=== PATIENT | male | born 1965 | race Caucasian/White ===

== ENCOUNTER 2017-01-06 16:26 | Emergency (ER) | payer BC ==
[2017-01-06 16:32] VITALS: RESP 16
[2017-01-06] MEDS ORDERED: ONDANSETRON DISINTEGRATING 4 MG TAB PO ONE (16:38)
[2017-01-06] MEDS ORDERED: ONDANSETRON DISINTEGRATING 4 MG TAB ONE (16:39)
--- NOTE | 2017-01-06 16:50 | EDPHY ---
HPI/HX/ROS/PE/MDM Narrative: CHIEF COMPLAINT: Vomiting HPI: This patient is a 51-year-old male who presents to the Emergency Department complaining of acute onset vomiting beginning last night at 2130, shortly after taking his first dose of amoxicillin to treat a wound infection to his right ear as prescribed by his primary care provider. At approximately 2200 last night, he felt acutely anxious followed by 3-4 hours of acute emesis last night. Today, he was able to eat breakfast and lunch without issue. He took another dose of amoxicillin at 1400; by 1500, he began to experience a similar episode of emesis and anxiety. At time of arrival, he complains of persistent nausea. He denies fever, chills, or any additional complaints. His primary care provider recommended that he stop taking amoxicillin and use topical drops to treat instead. His PCP also recommended Zofran; the patient has no attempted to use an antiemetic prior to arrival. No pertinent medical history. REVIEW OF SYSTEMS: Aside from elements discussed in the HPI, a comprehensive 10-point review of systems was reviewed and is negative. 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 ENT:Eyes are normal to inspection. Abrasion with scabbing present at 12 o'clock position of the external auditory canal; no swelling or discharge. TMs are clear bilaterally. Neck: Normal inspection. Full range of motion. Respiratory:No respiratory distress. Breath sounds normal bilaterally. Cardiovascular: Regular rate and rhythm. Strong peripheral pulses. Normal cap refill. Abdomen:The abdomen is nontender to palpation. There are no peritoneal signs. There are normal bowel sounds. Back: Normal to inspection. No tenderness to palpation. Skin: Normal color. No rash. Warm and dry. Extremities: Normal appearance. Full range of motion. Neuro: Oriented x3. Normal motor function. Normal sensory function. ED Course: Normally healthy 51-year-old male presents following two episodes of acute emesis, each preceded by taking a dose of amoxicillin prescribed by his PCP to treat an infected wound in his right ear canal. He has no additional complaints. He is afebrile and appropriate at time of exam. He appears to have an adverse reaction to amoxicillin. 4mg PO Zofran administered. 1802: On reevaluation the patient continues to complain of nausea. IV established. 4mg IV Zofran and 1L IV NS administered. Awaiting lab results. Labs obtained and are unremarkable. Troponin is negative. 2001: At time of reevaluation, the patient reports significant improvement to his nausea following administration of Zofran. He will be discharged home in good condition with customary return precautions. He is given a Zofran pre-pack to use PRN for nausea. MDM: This patient presents with what sounds like an adverse reaction to amoxicillin, no evidence of true anaphylaxis. Patient's symptoms of nausea appear to coincide well with timing of his amoxicillin dosing. His ear appears to be healing well and I do not think oral antibiotics are indicated, so I think he can discontinue this medication. His labs are unremarkable and there is no evidence of a cardiac etiology. He reports resolution of his symptoms prior to discharge. We discussed strict return precautions. - Data Points Laboratory Results: Laboratory Results 01/06/17 17:40 01/06/17 17:40 01/06/17 01/06/17 17:40 17:40 WBC 7.71 10^3/uL 10^3/uL (3.80-9.50) RBC 5.58 10^6/uL 10^6/uL (4.40-6.38) Hgb 18.1 g/dL H g/dL (13.7-17.5) Hct 52.6 % H % (40.0-51.0) MCV 94.3 fL fL (81.5-99.8) MCH 32.4 pg pg (27.9-34.1) MCHC 34.4 g/dL g/dL (32.4-36.7) RDW 12.2 % % (11.5-15.2) Plt Count 144 10^3/uL L 10^3/uL (150-400) MPV 10.9 fL fL (8.7-11.7) Neut % (Auto) 76.3 % H % (39.3-74.2) Lymph % (Auto) 14.9 % L % (15.0-45.0) Lipscomb % (Auto) 6.7 % % (4.5-13.0) Eos % (Auto) 1.6 % % (0.6-7.6) Baso % (Auto) 0.1 % L % (0.3-1.7) Nucleat RBC Rel Count 0.0 % % (0.0-0.2) Absolute Neuts (auto) 5.88 10^3/uL 10^3/uL (1.70-6.50) Absolute Lymphs (auto) 1.15 10^3/uL 10^3/uL (1.00-3.00) Absolute Monos (auto) 0.52 10^3/uL 10^3/uL (0.30-0.80) Absolute Eos (auto) 0.12 10^3/uL 10^3/uL (0.03-0.40) Absolute Basos (auto) 0.01 10^3/uL L 10^3/uL (0.02-0.10) Absolute Nucleated RBC 0.00 10^3/uL 10^3/uL (0-0.01) Immature Gran % 0.4 % % (0.0-1.1) Immature Gran # 0.03 10^3/uL 10^3/uL (0.00-0.10) Sodium 139 mEq/L mEq/L (134-144) Potassium 4.6 mEq/L mEq/L (3.5-5.2) Chloride 101 mEq/L mEq/L (97-110) Carbon Dioxide 23 mEq/l mEq/l (22-31) Anion Gap 15 mEq/L mEq/L (8-16) BUN 26 mg/dL H mg/dL (7-23) Creatinine 1.2 mg/dL mg/dL (0.7-1.3) Estimated GFR > 60 Glucose 97 mg/dL mg/dL (70-100) Calcium 9.7 mg/dL mg/dL (8.5-10.4) Troponin I 0.013 ng/mL ng/mL (0-0.034) Specimen Hemolysis 288 Medications Given: Discontinued Medications Sodium Chloride (Ns) 1,000 mls @ 0 mls/hr IV ONCE ONE; Wide Open PRN Reason: Protocol Stop: 01/06/17 17:23 Last Admin: 01/06/17 17:40 Dose: 1,000 mls Ondansetron HCl (Zofran Odt) 4 mg PO EDNOW ONE Stop: 01/06/17 16:39 Last Admin: 01/06/17 16:42 Dose: 4 mg Ondansetron HCl (Zofran) 4 mg IVP EDNOW ONE Stop: 01/06/17 17:23 Last Admin: 01/06/17 17:40 Dose: 4 mg General Time Seen by Provider: 01/06/17 16:41 Initial Vital Signs: Initial Vital Signs Temperature (C) 36.5 C 01/06/17 16:28 Heart Rate 91 01/06/17 16:28 Respiratory Rate 16 01/06/17 16:28 Blood Pressure 127/91 H 01/06/17 16:28 O2 Sat (%) 98 01/06/17 16:28 O2 Delivery Mode Room Air Allergies/Adverse Reactions: No Known Allergies Allergy (Unverified 01/06/17 16:28) Home Medications: Medication Instructions Recorded Amoxicillin 01/06/17 Departure - Departure Disposition: Home, Routine, Self-Care Clinical Impression: Adverse reaction to antibiotic Qualifiers: Encounter type: initial encounter Qualified Code(s): T36.95XA - Adverse effect of unspecified systemic antibiotic, initial encounter Vomiting Qualifiers: Vomiting type: unspecified Vomiting Intractability: non-intractable Nausea presence: with nausea Qualified Code(s): R11.2 - Nausea with vomiting, unspecified Condition: Good Instructions: Ondansetron (By mouth), Acute Nausea and Vomiting (ED), Adverse Drug Reaction (ED) Additional Instructions: 1. Take one tab of Zofran every 4-6 hours as needed for nausea and vomiting. 2. Stop taking the amoxicillin. Continue to use the topical drops to treat the infection in your ear. 3. Follow-up with your primary care provider if you continue to experience nausea or vomiting, or if you have worsening ear pain or swelling. 4. Return to the Emergency Department if you experience uncontrollable vomiting , severe abdominal pain, high fever, or for other serious concerns. Referrals: Jv Orr MD [Medical Doctor] - As per Instructions Report Scribed for: Tonny Hunter Report Scribed by: Marce Sanchez Date of Report: 01/06/17 Time of Report: 16:44 Physician Review and Approval Statement: Portions of this note were transcribed by an ED scribe. I personally performed the history, physical exam, and medical decision making; and confirm the accuracy of the information in the transcribed note.
[2017-01-06] MEDS ORDERED: ONDANSETRON 4 MG/2 ML VIAL IVP ONE (17:22)
[2017-01-06] MEDS ORDERED: NS 1,000 ML IV ONE (17:22)
[2017-01-06 17:55] LABS: % IMMATURE GRANULYOCYTES 0.4 % (0.0-1.1); ABSOLUTE IMMATURE GRANULOCYTES 0.03 10^3/uL (0.00-0.10); ADD DIFF? NO; ADD MORPH? NO; ADD SCAN? NO; ATYPICAL LYMPHOCYTE FLAG 10 (0-99); FRAGMENT RBC FLAG 0 (0-99); HEMATOCRIT 52.6 % (40.0-51.0); HEMOGLOBIN 18.1 g/dL (13.7-17.5); LEFT SHIFT FLG 0 (0-99); LIPEMIA HEMOLYSIS FLAG 90 (0-99); MEAN CELL HEMOGLOBIN 32.4 pg (27.9-34.1); MEAN CELL HEMOGLOBIN CONCENTR. 34.4 g/dL (32.4-36.7); MEAN CELL VOLUME 94.3 fL (81.5-99.8); MEAN PLATELET VOLUME 10.9 fL (8.7-11.7); PLATELET CLUMPS FLAG 0 (0-99); PLATELET COUNT 144 10^3/uL (150-400); RED BLOOD CELL COUNT 5.58 10^6/uL (4.40-6.38); RED CELL DISTRIBUTION WIDTH 12.2 % (11.5-15.2)
[2017-01-06 18:11] LABS: ANION GAP 15 mEq/L (8-16); CALCIUM 9.7 mg/dL (8.5-10.4); CARBON DIOXIDE 23 mEq/l (22-31); CHLORIDE 101 mEq/L (97-110); CREATININE 1.2 mg/dL (0.7-1.3); GLOMERULAR FILTRATION RATE > 60; GLUCOSE 97 mg/dL (70-100); POTASSIUM 4.6 mEq/L (3.5-5.2); SODIUM 139 mEq/L (134-144)
[2017-01-06 19:54] LABS: TROPONIN I 0.013 ng/mL (0-0.034)
[2017-01-06 19:55] LABS: SPECIMEN HEMOLYSIS 288
[2017-01-06] MEDS ORDERED: ONDANSETRON 4MG PREPACK#2 BTL TAKEHOME ONE (20:01)
[2017-01-06 20:18] VITALS: BP 118/81; PULSE 75; TEMP 97.5; O2SAT 95
== END 2017-01-06 20:18 | disposition home or self-care (01) ==
LOC: MERGE 16:26
DX: R11.2 Nausea with vomiting, unspecified (principal); T36.95XA Adverse effect of unspecified systemic antibiotic, initial encounter; E86.9 Volume depletion, unspecified
CPT/HCPCS: 96374; J2405

== ENCOUNTER 2017-08-04 16:41 | Emergency (ER) | payer BC ==
[2017-08-04 16:48] VITALS: BP 106/84; PULSE 77; RESP 17; TEMP 97.5; O2SAT 98
--- NOTE | 2017-08-04 16:54 | EDPHY ---
H & P Stated Complaint: hiking felt a pop/pain l calf Time Seen by Provider: 08/04/17 16:53 HPI/ROS: CHIEF COMPLAINT: Right calf pain HISTORY OF PRESENT ILLNESS: The patient presents the ED for evaluation of acute right calf pain that began while he was hiking. The patient reportedly felt a pop in his right calf and is had pain with any attempted flexion of his toes since that time. The patient denies any acute numbness or weakness. REVIEW OF SYSTEMS: A comprehensive 10 point review of systems is otherwise negative aside from elements mentioned in the history of present illness. Source: Patient Exam Limitations: No limitations - Personal History Current Tetanus/Diphtheria Vaccine: Unsure - Medical/Surgical History Hx Asthma: No Hx Chronic Respiratory Disease: No Hx Diabetes: No Hx Cardiac Disease: No Hx Renal Disease: No Hx Cirrhosis: No Hx Alcoholism: No Hx HIV/AIDS: No Hx Splenectomy or Spleen Trauma: No Other PMH: pmh:none. psh:spleen repair, foot surg, hernia repair, " colapsed lung" - Social History Smoking Status: Current every day smoker - Physical Exam Exam: General Appearance: Alert, no distress Respiratory: There are no retractions, lungs are clear to auscultation Cardiovascular: Regular rate and rhythm Gastrointestinal: Abdomen is soft and nontender, no masses, bowel sounds normal Neurological: A&O, normal motor function, normal sensory exam, normal cranial nerves Skin: Warm and dry, no rashes Musculoskeletal: Neck is supple nontender Extremities: Right calf tenderness, no asymmetry, 2+ dorsalis pedis and posterior tibial pulse noted bilaterally Constitutional: Initial Vital Signs Temperature (C) 36.4 C 08/04/17 16:44 Heart Rate 77 08/04/17 16:44 Respiratory Rate 17 08/04/17 16:44 Blood Pressure 106/84 H 08/04/17 16:44 O2 Sat (%) 98 08/04/17 16:44 O2 Delivery Mode Room Air Allergies/Adverse Reactions: No Known Allergies Allergy (Verified 08/04/17 16:44) Home Medications: Medication Instructions Recorded NK [No Known Home Meds] 08/04/17 Medical Decision Making ED Course/Re-evaluation: The patient presents to the ED with a strain/tear of his gastrocs muscle he sustained while hiking. The patient will be given crutches. He is advised to weight bear as tolerated. The patient should follow up with our on-call orthopedic surgeon for any symptoms of persistent pain or difficulty with ambulation past 7-10 days. He is referred to Dr. Juan C Dietrich for this evaluation. He has no clinical evidence of a DVT or vascular emergency. Differential Diagnosis: Differential diagnosis considered includes gastroc muscle strain, arterial thrombosis, DVT Departure - Departure Disposition: Home, Routine, Self-Care Clinical Impression: Gastrocnemius strain Condition: Good Instructions: Muscle Strain (ED) Additional Instructions: 1. Crutches as needed for ambulation. 2. Ice as directed 3. Tylenol as needed for pain. 4. Please follow up with the orthopedic surgeon you have been referred to for any persistent pain or difficulty with ambulation past 7 days Referrals: Juan C Dietrich MD [Medical Doctor] - As per Instructions
== END 2017-08-04 17:56 | disposition home or self-care (01) ==
DX: S86.811A Strain of other muscle(s) and tendon(s) at lower leg level, right leg, initial encounter (principal); F17.200 Nicotine dependence, unspecified, uncomplicated; X58.XXXA Exposure to other specified factors, initial encounter; Y99.8 Other external cause status; Y93.01 Activity, walking, marching and hiking